=== PATIENT | male | born 1995 | race Hispanic/Latino ===

== ENCOUNTER 2024-09-07 08:34 | Emergency (ER) | payer BC, MEDICARE ==
[~2024-09-07] VITALS: Ht 172.7 cm; Wt 79.4 kg
[2024-09-07 08:42] VITALS: PULSE 86; RESP 17; TEMP 97.7; O2SAT 100
[2024-09-07] MEDS ORDERED: ONDANSETRON ODT4 MG PO (09:04)
== END 2024-09-07 09:41 | disposition home or self-care (01) ==
LOC: ER 08:38
DX: R51.9 Headache, unspecified (principal); S06.0X0A Concussion without loss of consciousness, initial encounter; Y04.0XXA Assault by unarmed brawl or fight, initial encounter; Y92.89 Other specified places as the place of occurrence of the external cause; E11.9 Type 2 diabetes mellitus without complications; G40.909 Epilepsy, unspecified, not intractable, without status epilepticus
CPT/HCPCS: 99282

== ENCOUNTER 2024-09-13 18:52 | Emergency (ER) | payer BC ==
[~2024-09-13] VITALS: Ht 172.7 cm; Wt 79.4 kg
[~2024-09-13 18:52] MED LIST: ONDANSETRON ODT4 MG PO
[2024-09-13 19:08] VITALS: TEMP 98.3
[2024-09-13 20:00] VITALS: PULSE 80; RESP 18
[2024-09-13] MEDS: IBUPROFEN 600 MG TAB PO STA (21:13)
[2024-09-13 21:24] VITALS: BP 130/86; PULSE 84; RESP 20; TEMP 97; O2SAT 100
== END 2024-09-13 21:30 | disposition home or self-care (01) ==
LOC: ER 18:56
DX: S06.0X0A Concussion without loss of consciousness, initial encounter (principal); R51.9 Headache, unspecified; Y04.0XXA Assault by unarmed brawl or fight, initial encounter; Y92.89 Other specified places as the place of occurrence of the external cause; E11.9 Type 2 diabetes mellitus without complications; G40.909 Epilepsy, unspecified, not intractable, without status epilepticus
CPT/HCPCS: 70450; 99284

== ENCOUNTER 2025-01-12 14:43 | Emergency (ER) | payer BC, MEDICARE ==
[~2025-01-12] VITALS: Ht 172.7 cm; Wt 79.4 kg
[2025-01-12 16:15] LABS: BASOPHILS % 0.6 % (0.0-1.0); EOSINOPHILS % 2.8 % (0.0-6.0); LYMPHOCYTES % 34.5 % (18.0-39.1); MONOCYTES % 5.9 % (4.4-11.3); NEUTROPHILS % 55.9 % (38.7-80.0); RED CELL DISTRIBUTION WIDTH 11.9 % (11.7-14.4)
[2025-01-12] MEDS: SODIUM CHLORIDE 0.9% 1000ML 1,000 ML IV STA ×2 (16:15→17:43)
[2025-01-12] MEDS: ONDANSETRON HCL INJ 2MG/ML 2ML 2 MG/ML VIAL IV STA (16:15)
[2025-01-12] MEDS: LORAZEPAM INJ 2 MG/ML VIAL IV ONE (16:15)
[2025-01-12 16:26] LABS: LEUKOCYTE ESTERASE ,URINE NEGATIVE (NEGATIVE); PROTEIN,URINE DIPSTICK NEGATIVE (NEGATIVE); URINE UROBILINOGEN 0.2 mg/dL (0.2 - 1)
[2025-01-12 16:27] LABS: INR 0.84
[2025-01-12 16:37] LABS: EST GLOMERULAR FILTRATION RATE 123.0 ML/MIN (>=60)
[2025-01-12] MEDS ORDERED: IOPAMIDOL 370 MG/ML 100 ML INFUS..BTL INJ ONE (16:47)
[2025-01-12] MEDS ORDERED: FOSPHENYTOIN 50 MG/ML VIAL IV STA (17:37)
[2025-01-12 19:15] VITALS: PULSE 81; RESP 15; TEMP 97.9
[2025-01-12 20:02] VITALS: BP 126/95; PULSE 90; RESP 15; O2SAT 100
== END 2025-01-12 19:50 | disposition home or self-care (01) ==
LOC: ER 15:27
DX: R10.31 Right lower quadrant pain (principal); E11.65 Type 2 diabetes mellitus with hyperglycemia; E78.5 Hyperlipidemia, unspecified; G40.909 Epilepsy, unspecified, not intractable, without status epilepticus
CPT/HCPCS: 36415; 74177; 80053; 80185; 81001; 85025; 85610; 85730; 99284; J2060; J7030; Q2009; Q9967; J2405